=== PATIENT | female | born 1980 | race Caucasian/White ===

== ENCOUNTER 2017-03-25 00:17 | Emergency (ER) | payer SELFPAY ==
[~2017-03-25] VITALS: Ht 152.4 cm; Wt 89.0 kg
[~2017-03-25 00:17] MED LIST: NEXIUM40 M1 PO; NUVARING; OMEPRAZOLE20 M1 PO; XANAX0.25 M1 PO; XANAX0.25 MG PO
[2017-03-25 01:06] LABS: BASO % 0.3 % (0-2); EOS % 2.4 % (0-7); EOSINOPHIL ABSOLUTE COUNT 0.3 tho/cmm (0.0-0.7); HCT-HEMATOCRIT 39.1 % (34.0-49.0); HGB-HEMOGLOBIN 13.2 gm/dl (12.0-15.5); IMMATURE GRANULOCYTES ABSOLUTE 0.02 tho/cmm (0-0.03); IMMATURE GRANULOCYTES PERCENT 0.2 % (0-0.3); LYMPH % 35.6 % (20-45); LYMPH ABSOLUTE COUNT 4.1 tho/cmm (0.8-4.5); MCH (MEAN CORPUSCULAR HGB) 28.5 pg (28.0-32.0); MCHC MEAN CORPUSCULAR HGB CONC 33.8 % (32.0-36.0); MCV (MEAN CELL VOLUME) 84.4 fl (82.0-96.0); MEAN PLATELET VOLUME 10.3 cmc (9.4-12.4); MONO % 7.4 % (0-12); MONOCYTE ABSOLUTE COUNT 0.9 tho/cmm (0.0-1.2); NEUTROPHIL ABSOLUTE COUNT 6.2 tho/cmm (1.6-8.0); NEUTROPHIL-AUTOMATED 6.2 tho/cmm (1.6-8.0); NEUTROPHILS % 54.1 % (40-80); PLATELET COUNT 231 tho/cmm (150-450); RED BLOOD COUNT 4.63 mil/cmm (4.00-5.20); WHITE BLOOD COUNT 11.5 tho/cmm (4.0-10.0)
[2017-03-25 01:26] LABS: ALB/GLOB RATIO 0.9 (0.8-2.0); ALBUMIN 3.4 g/dl (3.5-5.0); ALKALINE PHOSPHATASE 74 U/L (33-138); ALT/SGPT 22 U/L (12-78); ANION GAP 10 mmol/L (0-20); AST/SGOT 10 U/L (10-40); BILIRUBIN,TOTAL 0.4 mg/dl (0-1.5); BLOOD UREA NITROGEN 12 mg/dl (6-24); CALCIUM 8.6 mg/dl (8.5-10.5); CARBON DIOXIDE-VENOUS 25 mmol/L (22-32); CHLORIDE 108 mmol/l (96-110); CREATININE 0.62 mg/dl (0.50-1.10); GLUCOSE 85 mg/dL (70-110); LIPASE 139 U/L (73-393); POTASSIUM 3.5 mmol/L (3.7-5.1); SODIUM 139 mmol/L (135-145); eGFR VALUE FOR BLACK >90 mL/Min
[2017-03-25 03:09] LABS: URINE BILIRUBIN NEGATIVE (NEG); URINE BLOOD NEGATIVE (NEG); URINE GLUCOSE (UA) NEGATIVE (NEG); URINE KETONE NEGATIVE (NEG); URINE LEUKOCYTE ESTERASE NEGATIVE (NEG); URINE NITRITE NEGATIVE (NEG); URINE PROTEIN NEGATIVE (NEG); URINE SPECIFIC GRAVITY 1.005 (1.003-1.030)
[2017-03-25 03:10] LABS: URINE APPEARANCE CLEAR; URINE COLOR PALE YELLOW
[2017-03-25] MEDS ORDERED: ZOFRAN4 M2 PO (03:37)
== END 2017-03-25 03:50 ==
LOC: EDMED 00:17
PROVIDERS: Emergency Medicine
DX: A08.4 Viral intestinal infection, unspecified (principal); F32.9 Major depressive disorder, single episode, unspecified; F41.0 Panic disorder [episodic paroxysmal anxiety]; F17.200 Nicotine dependence, unspecified, uncomplicated; Z90.89 Acquired absence of other organs; Z88.8 Allergy status to other drugs, medicaments and biological substances; Z79.899 Other long term (current) drug therapy; Z98.890 Other specified postprocedural states
CPT/HCPCS: J2405; J7030